=== PATIENT | male | born 1930 | race Caucasian/White ===

== ENCOUNTER 2016-10-24 17:00 | Emergency (ER) | payer OTHER, MEDICARE ==
[~2016-10-24] VITALS: Ht 167.6 cm; Wt 88.5 kg
[~2016-10-24 17:00] MED LIST: ACIDOPHILUS1 CAP PO; ALBUTEROL0.09 MG/A1 INH; CALCIUM MAGNESI1 TAB PO; COUMADIN 7.5 M7.5 MG PO; COUMADIN5 M2 PO; CRESTOR40 M2 PO; FERROUS SULFAT325 M3 PO; GLUCOSAMINE &1 EAC1 PO; ISOSORBIDE MONO30 M1 PO; K-TAB ER20 MEQ PO; KEFLEX500 M1 PO; LASIX20 M1 PO; LIORESAL 10MG T10 MG PO; MYSOLINE50 M1 PO; NEURONTIN400 M1 PO; OMEPRAZOLE D/R20 MG PO; PERCOCET 325 MG1 TA1 PO; PROS5 PO; VICODIN 5-3001 EACH PO; VITAMIN B121000 MC2 PO
--- NOTE | 2016-10-24 17:44 | ED ANKLE/FOOT INJURY COMPLAINT ---
History of Present Illness General Chief Complaint: Foot or Ankle Injury Stated Complaint: L FOOT PAIN, UNABLE TO BEAR WEIGHT Source: patient, family Exam Limitations: no limitations Vital Signs & Intake/Output Vital Signs & Intake/Output ED Intake and Output 10/25 0000 10/24 1200 Intake Total 10 Output Total Balance 10 Intake, Oral 10 Patient 195 lb Weight Allergies Coded Allergies: Penicillins (Mild, BLOTCHY AND ITCHY 10/24/16) Reconcile Medications Cephalexin (Keflex) 500 MG CAPSULE 1 CAP PO 4 TIMES/DAY ANTIBIOTIC (Reported) Finasteride 5 MG TABLET 1 TAB PO DAILY BPH (Reported) Furosemide (Lasix) 20 MG TABLET 1 TAB PO BID DIURETIC (Reported) Gabapentin (Neurontin) 400 MG CAPSULE 1 CAP PO DAILY SLEEP (Reported) Hydrocodone/Acetaminophen (Vicodin 5-300 MG Tablet) 5 MG-300 MG TABLET 1 TAB PO Q6 PRN pain Isosorbide Mononitrate (Isosorbide Mononitrate ER) 30 MG TAB.ER.24H 1 TAB PO DAILY ANGINA (Reported) Lactobacillus Combo No.11 (Probiotic) (Unknown Strength) CAP.SPRINK (Unknown Dose) PO DAILY PROBIOTIC (Reported) Potassium Chloride (K-Tab ER) 20 MEQ TABLET.ER 1 TAB PO DAILY SUPPLEMENT ( Reported) Rosuvastatin Calcium (Crestor) 40 MG TABLET 0.5 TAB PO DAILY CHOLESTEROL ( Reported) Tamsulosin HCl (Flomax) 0.4 MG CAP.ER.24H 1 CAP PO QPM PROSTATE (Reported) Warfarin Sodium (Coumadin) 5 MG TABLET 1 TAB PO 1700 BLOOD THINNER (Reported) Triage Note: TRIAGE: PT TO ER C/C L FOOT PAIN SINCE Tuesday. NO KNOWN INJURY. WHILE SEATED IN W/C AT TRIAGE DENIES ANY PAIN. STATES PAIN IS "REAL BAD" WITH STANDING AND WALKING. DESCRIBES BURNING PAIN. STATES HAS STIMULATOR FOR NEUROPATHY BUT IT'S NOT TOUCHING THIS PAIN. Triage Nurses Notes Reviewed? yes HPI: Patient is an 86 year old male presents complaining of severe left foot and ankle pain. Pain is a burning sensation mild to moderate at rest, severe with any attempt at weight bearing. Patient will intermittently get sharp pains to various locations in his left foot while at rest. Patient has had burning pain to his left foot chronically, not as severe, that usually responds to his nerve stimulator. No improvement with patient's nerve stimulator since Tuesday. Patient had physical therapy to his foot on Tuesday, does not recall any specific inciting injury. Patient takes neurontin before bedtime daily without improvement. Denies decreased range of motion, recent falls. (SOTO GÓMEZ) Past History Travel History Traveled to [place] past 21 day No Medical History Any Pertinent Medical History? 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 No (SOTO GÓMEZ) Review of Systems Review of Systems Constitutional: Denies: chills, fever. Respiratory: Denies: short of breath. Cardiovascular: Denies: chest pain. GI: Denies: abdominal pain. Musculoskeletal: Denies: back pain. Skin: Denies: rash. Neurological/Psychological: Denies: numbness. Hematologic/Endocrine: Denies: bruising, bleeding. Immunologic/Allergic: Denies: splenectomy. (SOTO GÓMEZ) Physical Exam Physical Exam General Appearance: well developed/nourished, alert, awake Head: atraumatic, normal appearance Eyes: Bilateral: normal appearance. Ears, Nose, Throat: hearing grossly normal Neck: normal inspection, supple, full range of motion Cardiovascular/Respiratory: normal breath sounds, no respiratory distress Back: normal inspection, normal range of motion Leg/Knee/Thigh Left: normal range of motion, normal inspection, nontender Ankle Left: mild left lateral malleolus tenderness Foot Left: mild tenderness left medial forefoot, full range of motion. No tenderness to the plantar surface Neuro/Vascular: normal motor function Tendon: normal tendon function Psychiatric: awake, alert, oriented x 3 Skin: intact, normal color, warm/dry (SOTO GÓMEZ) Progress Differential Diagnosis: fracture, stress fracture, arthritis, gout, foreign body , plantar fasciitis, peripheral neuropathy Plan of Care: Orders Procedure Date/time Status XRY-FOOT COMPLETE, LEFT 10/24 1755 Active XRY-ANKLE 3 OR MORE VIEWS L 10/24 1755 Active Patient declined pain medication on initial exam. Discussed with Dr. Lang. 10/24/2016 7:44:08 PM: Results of x-rays discussed with patient and his family. No apparent signs of infectious etiology, pulses and capillary refill normal. Pain alternates between sharp pain and burning pain that varies on the plantar surface and the dorsal surface. Possible neuropathic pain. We'll have patient follow up with his mangle tender and primary care doctor for further evaluation. (MUNA JUDD,SOTO) Diagnostic Imaging: Viewed by Me: Radiology Read. Discussed w/RAD: Radiology Read. Radiology Impression: PATIENT: PAOLA PERSON PRESENT AGE: 86 PATIENT ACCOUNT NO: [id number] : 29 LOCATION: [facility] ORDERING PHYSICIAN: SOTO JUDD SERVICE DATE: 10/24/16 EXAM TYPE: RAD - XRY-ANKLE 3 OR MORE VIEWS L; XRY-FOOT COMPLETE, LEFT EXAMINATION: XR ANKLE, LEFT XR FOOT, LEFT CLINICAL INFORMATION: An 86-year-old male presented with severe left ankle and left foot pain. COMPARISON: None. TECHNIQUE: Three views each of the left ankle and left foot were obtained. FINDINGS: LEFT ANKLE: The bony alignment is intact. Mild osteoarthrosis is noted. Arterial calcifications are present. Mild periarticular osteopenia is noted. LEFT FOOT: Mild diffuse osteopenia is noted. Mild osteoarthrosis is noted at the 1st MTP joint and the PIP joint. Mild intertarsal degenerative osteoarthrosis is present. Arterial calcifications are noted. Broken osteophyte is noted at the anterior tip of the articular surface of the tibia. There is a linear radiopaque density seen projecting over the plantar, lateral aspect of the calcaneus, measures approximately 0.6 cm within the soft tissues, consistent with a radiopaque foreign body. IMPRESSION: 1. A 0.6 cm radiopaque foreign body is seen projecting over the plantar, lateral aspect of the left hindfoot. 2. Diffuse osteopenia. 3. 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 4. No radiographic evidence of any superimposed acute fracture and/or dislocation. 5. Arterial calcifications. DICTATED BY: TY GAN MD DATE/TIME DICTATED:10/24/161831 STOCKROOM KEEPER:CORAL DATE/ TIME TRANSCRIBED:10/24/161831 CONFIDENTIAL, DO NOT COPY WITHOUT APPROPRIATE AUTHORIZATION. <Electronically signed in Other Vendor System> SIGNED BY: TY GAN MD 10/24/161913 (SOTO GÓMEZ) Departure Departure Time of Disposition: 1944 Disposition: HOME OR SELF CARE Condition: Stable Clinical Impression Primary Impression: Acute pain of left foot Referrals: Cassy CHAHAL DPM, MD,CHLOE Gomez (PCP/Family) Additional Instructions: Follow up with Dr. Chahal this week for further evaluation of your foot pain and for further evaluation of the foreign body(needle) present in your foot. Also follow up with your primary doctor this week for further evaluation. Return to the ER if you develop any rashes/redness, fevers, or worsening of symptoms. Vicodin may make you drowsy. Do not take if you are getting drowsy or lethargic. May also cause constipation. Take a stool softener such as colace as directed while taking the pain medication to aid with bowel movements. Departure Forms: Customer Survey General Discharge Information Prescriptions: Current Visit Scripts Hydrocodone/Acetaminophen (Vicodin 5-300 MG Tablet) 1 TAB PO Q6 PRN pain #10 TAB (SOTO GÓMEZ) PA/PUBLIC HEALTH INSPECTOR Co-Sign Statement Statement: ED Attending supervision documentation- [X] I saw and evaluated the patient. I have also reviewed all the pertinent lab results and diagnostic results. I agree with the findings and the plan of care as documented in the PA's/PUBLIC HEALTH INSPECTOR's documentation. [X] I have reviewed the ED Record and agree with the PA's/PUBLIC HEALTH INSPECTOR's documentation. [] Additions or exceptions (if any) to the PAs/PUBLIC HEALTH INSPECTOR's note and plan are summarized below: [] (ENRIKE LUONG,HIRO Allan)
[2016-10-24] MEDS ORDERED: FLOMAX0.4 M1 PO (19:01)
[2016-10-24] MEDS ORDERED: FINASTERIDE5 M1 PO (19:02)
[2016-10-24] MEDS ORDERED: PROBIOTIC1 EAC3 PO (19:06)
[2016-10-24 19:13] VITALS: BP 141/70
--- NOTE | 2016-10-24 19:14 | RADIOLOGY REPORT ---
EXAMINATION: XR ANKLE, LEFT XR FOOT, LEFT CLINICAL INFORMATION: An 86-year-old male presented with severe left ankle and left foot pain. COMPARISON: None. TECHNIQUE: Three views each of the left ankle and left foot were obtained. FINDINGS: LEFT ANKLE: The bony alignment is intact. Mild osteoarthrosis is noted. Arterial calcifications are present. Mild periarticular osteopenia is noted. LEFT FOOT: Mild diffuse osteopenia is noted. Mild osteoarthrosis is noted at the 1st MTP joint and the PIP joint. Mild intertarsal degenerative osteoarthrosis is present. Arterial calcifications are noted. Broken osteophyte is noted at the anterior tip of the articular surface of the tibia. There is a linear radiopaque density seen projecting over the plantar, lateral aspect of the calcaneus, measures approximately 0.6 cm within the soft tissues, consistent with a radiopaque foreign body. IMPRESSION: 1. A 0.6 cm radiopaque foreign body is seen projecting over the plantar, lateral aspect of the left hindfoot. 2. Diffuse osteopenia. 3. 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 4. No radiographic evidence of any superimposed acute fracture and/or dislocation. 5. Arterial calcifications.
[2016-10-24] MEDS ORDERED: VICODIN 5-3001 EACH PO (19:46)
== END 2016-10-24 19:56 ==
LOC: ERH 17:00
DX: M79.672 Pain in left foot (principal); R52 Pain, unspecified
CPT/HCPCS: 73610-LT; 73630-LT

== ENCOUNTER 2016-12-11 16:25 | Emergency (ER) | payer OTHER, MEDICARE ==
[~2016-12-11] VITALS: Ht 172.7 cm; Wt 88.5 kg
[~2016-12-11 16:25] MED LIST changes: +FINASTERIDE5 M1 PO; +FLOMAX0.4 M1 PO; +PROBIOTIC1 EAC3 PO
[2016-12-11 16:33] VITALS: BP 171/72
--- NOTE | 2016-12-11 17:02 | RADIOLOGY REPORT ---
EXAMINATION: RIGHT HAND 3 VIEWS CLINICAL INFORMATION: Right hand pain and swelling. COMPARISON: None. TECHNIQUE: PA, lateral, oblique views of the right hand were obtained. FINDINGS: There are no acute fractures. There is no focal soft tissue swelling. Advanced arthritic changes are present within the second through fourth PIP joints, second through fifth DIP joints and the first carpal-metacarpal joint. IMPRESSION: Arthritic change without evidence of acute injury.
[2016-12-11] MEDS ORDERED: OMEGA-31000 M1 PO (18:04)
[2016-12-11] MEDS ORDERED: CO Q-10200 MG PO (18:05)
[2016-12-11] MEDS ORDERED: VITAMIN B-125000 MCG PO (18:05)
[2016-12-11] MEDS ORDERED: COLCHICINE0.6 M2 PO (18:10)
--- NOTE | 2016-12-11 18:10 | ED HAND/WRIST INJURY COMPLAINT ---
History of Present Illness General Chief Complaint: Hand or Wrist Injury Stated Complaint: RIGHT POINT FINGER PAIN Source: patient, family Exam Limitations: no limitations Vital Signs & Intake/Output Vital Signs & Intake/Output Vital Signs Date Time Temp Pulse Resp B/P Pulse O2 O2 Flow FiO2 Ox Delivery Rate 12/11 1633 96.8 60 18 171/72 95 Room Air ED Intake and Output 12/12 0000 12/11 1200 Intake Total Output Total Balance Patient 195 lb Weight Allergies Coded Allergies: Penicillins (Mild, BLOTCHY AND ITCHY 10/24/16) Reconcile Medications Cephalexin (Keflex) 500 MG CAPSULE 1 CAP PO 4 TIMES/DAY ANTIBIOTIC (Reported) Colchicine 0.6 MG TABLET 1 TAB PO BID GOUT for 7 days Cyanocobalamin (Vitamin B-12) (Vitamin B-12) 5,000 MCG TAB.SUBL 1 CAP PO DAILY SUPPLEMENT (Reported) Finasteride 5 MG TABLET 1 TAB PO DAILY BPH (Reported) Furosemide (Lasix) 20 MG TABLET 1 TAB PO BID DIURETIC (Reported) Isosorbide Mononitrate (Isosorbide Mononitrate ER) 30 MG TAB.ER.24H 1 TAB PO DAILY ANGINA (Reported) Lactobacillus Combo No.11 (Probiotic) (Unknown Strength) CAP.SPRINK (Unknown Dose) PO DAILY PROBIOTIC (Reported) Spruce-3 Fatty Acids (Spruce-3) (Unknown Strength) CAPSULE (Unknown Dose) PO DAILY SUPPLEMENT (Reported) Potassium Chloride (K-Tab ER) 20 MEQ TABLET.ER 1 TAB PO DAILY SUPPLEMENT ( Reported) Rosuvastatin Calcium (Crestor) 40 MG TABLET 0.5 TAB PO DAILY CHOLESTEROL ( Reported) Tamsulosin HCl (Flomax) 0.4 MG CAP.ER.24H 1 CAP PO QPM PROSTATE (Reported) Ubidecarenone (Co Q-10) 200 MG CAPSULE 1 CAP PO DAILY SUPPLEMENT (Reported) Warfarin Sodium (Coumadin) 5 MG TABLET 1-1.5 TAB PO AD BLOOD THINNER ( Reported) Triage Note: PT STATES THAT HE WOKE YESTERDAY AM WITH R HAND POINTER AND MIDDLE FINGER REDNESS AND SWELLING , PT HAS ARTHRITIS IN HIS HANDS Triage Nurses Notes Reviewed? yes HPI: 86 yo M PMH HTN, HLD, A-fib (on coumadin), CKD presenting with left 2nd finger pain/swelling. Patient woke up from sleep this morning with swelling, erythema, and tenderness over 2nd finger PIP joint, reduced ROM 2/2 pain. Denies fevers, chills, chest pain, SOB, AP, N/V/D/C, motor or sensory symptoms. Patient has Hx of chronic right hip infection, on keflex PO daily. (EDUAR HODGES MD) Past History Travel History Traveled to [place] past 21 day No Medical History Any Pertinent Medical History? 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 No (EDUAR HODGES MD) Review of Systems Review of Systems Constitutional: Reports: no symptoms. Denies: fever. EENTM: Reports: no symptoms. Respiratory: Reports: no symptoms. Cardiovascular: Reports: no symptoms. GI: Reports: no symptoms. Genitourinary: Reports: no symptoms. Musculoskeletal: Reports: joint pain, joint swelling. Skin: Reports: no symptoms. Neurological/Psychological: Reports: no symptoms. Hematologic/Endocrine: Reports: no symptoms. Immunologic/Allergic: Reports: no symptoms. All Other Systems: Reviewed and Negative (EDUAR HODGES MD) Physical Exam Physical Exam General Appearance: well developed/nourished, no apparent distress, alert, awake Head: atraumatic Eyes: Bilateral: normal appearance. Ears, Nose, Throat: normal pharynx, normal ENT inspection Neck: normal inspection, supple Cardiovascular/Respiratory: normal breath sounds, normal peripheral pulses, regular rate/rhythm Back: normal inspection, normal range of motion Hand Left: swelling, tender, 2nd finger Hand Right: normal inspection Comments: Left hand: Erythema, swelling, tenderness over second finger PIP joint, reduced range of motion secondary to pain, chronic arthritic changes with deformity of remaining in fingers without erythema or swelling (EDUAR HODGES MD) Progress Differential Diagnosis: cellulitis, dislocation, fracture, gout, septic arthritis Plan of Care: Physician MDM: 86 yo M PMH HTN, HLD, A-fib (on coumadin), CKD presenting with left 2nd finger pain/swelling. VSS, afebrile, left hand exam as above. DDx: Gout , rheumatoid arthritis, less likely cellulitis, low concern for septic arthritis. Left hand x-ray without acute fracture dislocation, diffuse arthritic changes, family reassured no fracture present. Symptomatic management of gout discussed the patient and family, declined treatment with NSAIDs given history of CKD, declined treatment with steroids given concern for chronic right hip infection, interested in trial of colchicine. D/[place] with return precautions, plan to f/u with PMD in the next 2-3 days. (CARROLL LUONG,EDUAR) Departure Departure Disposition: HOME OR SELF CARE Condition: Stable Clinical Impression Primary Impression: Gout Qualifiers: Gout site: hand Gout etiology: unspecified cause Laterality: left Chronicity: acute Qualified Code: M10.9 - Gout, unspecified Referrals: KEYUR LUONG,CHLOE Gmoez (PCP/Family) Additional Instructions: Take tylenol for mild-moderate pain. Take oxycodone (percocet = oxycodone + tylenol) for severe pain. Take colchicine for presumed gout flare. Follow up with Dr. Olea in the next 2-3 days. Turn to the ED for any new, worsening, or concerning symptoms. Departure Forms: Customer Survey General Discharge Information Prescriptions: Current Visit Scripts Colchicine 1 TAB PO BID #60 TAB for 7 days (CARROLL LUONG,EDUAR) PA/RN PROCEDURES Co-Sign Statement Statement: ED Attending supervision documentation- [X] I saw and evaluated the patient. I have also reviewed all the pertinent lab results and diagnostic results. I agree with the findings and the plan of care as documented in the PA's/RN PROCEDURES's documentation. [X] I have reviewed the ED Record and agree with the PA's/RN PROCEDURES's documentation. [] Additions or exceptions (if any) to the PAs/RN PROCEDURES's note and plan are summarized below: [] (ENRIKE LUONG,HIRO Allan)
== END 2016-12-11 18:23 ==
LOC: ERH 16:25
DX: M10.9 Gout, unspecified (principal); Z79.01 Long term (current) use of anticoagulants
CPT/HCPCS: 73130-RT